=== PATIENT | female | born 1970 | race Asian ===

== ENCOUNTER → 2017-07-23 | Day surgery (SDC) | payer OTHER ==
[~2017-07-23] MED LIST: PROPOFOL 500 MG/50 ML BTL IV ONE
--- NOTE | 2017-07-23 10:30 | GIPROC ---
[facility] [address], [address] COLONOSCOPY PROCEDURE REPORT EXAM DATE: 07/23/2017 PATIENT NAME: Hiwot Arcos MR #: [id number] BIRTHDATE: 1970 ENDOSCOPIST: Mary Hoover MD ORDER #: [id number] LATIN DANCE INSTRUCTOR: Liliane James RN STATUS: outpatient INDICATIONS: The patient is a 46 yr old female here for a colonoscopy due to patient's immediate family history of colon cancer PROCEDURE PERFORMED: Colonoscopy, screening Thermal destruction internal hemorrhoids MEDICATIONS: None and Per Anesthesia. PREP QUALITY: good PREP TYPE:Other: ESTIMATED BLOOD LOSS: None CONSENT: The patient understands the risks and benefits of the procedure and understands that these risks include, but are not limited to: sedation, allergic reaction, infection, perforation and/or bleeding. Alternative means of evaluation and treatment include, among others: physical exam, x-rays, and/or surgical intervention. The patient elects to proceed with this endoscopic procedure. medical equipment was checked for proper function. Hand hygiene and appropriate measures for infection prevention was taken. After the risks, benefits and alternatives of the procedure were thoroughly explained, Informed consent was verified, confirmed and timeout was successfully executed by the treatment team. A digital exam was performed and revealed hemorrhoids The EC-3490Li ([id number]) and EC-3490Li ([id number]) endoscope was introduced through the anus and advanced to the cecum, which was identified by both the appendix and ileocecal valve. The instrument was then slowly withdrawn as the colon was fully examined. COLON FINDINGS: Internal hemorrhoids -s/p IRC -2.5 setting-4 appications. Retroflexed views revealed internal hemorrhoids and Retroflexed views revealed small internal hemorrhoids The scope was then completely withdrawn from the patient and the procedure terminated. PROCEDURE WITHDRAWAL TIME:8minutes ADVERSE EVENTS: There were no complications. IMPRESSIONS: 1. Internal hemorrhoids -s/p IRC -2.5 setting-4 appications 2. Retroflexed views revealed internal hemorrhoids 3. Retroflexed views revealed small internal hemorrhoids 4. Was performed 5. Revealed hemorrhoids RECOMMENDATIONS: 1. Benefiber 2 tsp daily 2. Yearly rectal exams 3. Probiotics from any [facility] or health food store 4. Proctozone cream RECALL: Return 5 years Colonoscopy flexisigmoidoscopy with IRC in 6-8 weeks if still problems Mary Hoover MD eSigned: Mary Hoover MD 07/23/2017 10:29 AM cc: Cheryl Lantigua and Deanne Calle M.D.
--- NOTE | 2017-07-23 10:35 | GIPROC ---
[facility] [address] [facility] [place], [address] EGD PROCEDURE REPORT EXAM DATE: 07/23/2017 PATIENT NAME: Hiwot Arcos MR #: [id number] BIRTHDATE: 1970 ATTENDING: Mary Hoover MD ORDER #: [id number] SEWING MACHINE OPERATOR PAPER BAGS: Liliane James RN STATUS: outpatient INDICATIONS: The patient is a 46 yr old female here for an EGD due to vit b12 , vit d deficiency evalute for atrophic gastritis, celiac disease PROCEDURE PERFORMED: EGD w/ biopsy MEDICATIONS: None and Per Anesthesia. TOPICAL ANESTHETIC: none CONSENT: The patient understands the risks and benefits of the procedure and understands that these risks include, but are not limited to: sedation, allergic reaction, infection, perforation and/or bleeding. Alternative means of evaluation and treatment include, among others: physical exam, x-rays, and/or surgical intervention. The patient elects to proceed with this endoscopic procedure. medical equipment was checked for proper function. Hand hygiene and appropriate measures for infection prevention was taken. After the risks, benefits and alternatives of the procedure were thoroughly explained, Informed consent was verified, confirmed and timeout was successfully executed by the treatment team. The patient was anesthetized with topical anesthesia and the EC-3490Li ([id number]) endoscope was introduced through the mouth and advanced to the second portion of the duodenum. Retroflexed views revealed no abnormalities The gastroscope was then slowly withdrawn and removed. Duodenum normal-biopsy from second portion and duodenla bulb mild gastritis in antrum-biopsy random biopsies from fundus and body done mild esophagitis EG junction-biopsy. ADVERSE EVENTS: There were no complications. IMPRESSIONS: 1. Duodenum normal-biopsy from second portion and duodenla bulb mild gastritis in antrum-biopsy random biopsies from fundus and body done mild esophagitis EG junction-biopsy 2. Retroflexed views revealed no abnormalities RECOMMENDATIONS: 1. Await biopsy results. Biopsy results will not be ready for 7-10 days. If you don't hear from us in two weeks, call our office for biopsy results. 2. Anti-reflux regimen 3. Avoid NSAIDS 4. Short term rx-PPI-30 days-Pantoprazole 20 mg po daily antiparietal ab celiac panel PATIENT CONDITION: stable DISPOSITION: Home REPEAT EXAM: Return 3 years EGD pending pathology report Mary Hoover MD eSigned: Mary Hoover MD 07/23/2017 10:35 AM cc: [facility] Combs [facility] M[facility] PATIENT NAME: Hiwot Arcos MR#: [id number]
== END | disposition home or self-care (01) ==
LOC: ESDC 08:17
PROVIDERS: ATTEND Internal Medicine Gastroenterology
DX: Z12.11 Encounter for screening for malignant neoplasm of colon (principal); Z80.0 Family history of malignant neoplasm of digestive organs; K64.0 First degree hemorrhoids; E53.8 Deficiency of other specified B group vitamins; K29.70 Gastritis, unspecified, without bleeding; K20.9 Esophagitis, unspecified
CPT/HCPCS: 00740; 00810; 00902; 43239; 45378; 46930; 88305; 88312; J3010